=== PATIENT | female | born 1930 | race Caucasian/White ===

== ENCOUNTER 2016-09-28 17:20 | Emergency (ER) ==
--- NOTE | 2016-09-28 18:25 | PROVIDER DOCUMENTATION ---
HPI-Musculoskeletal Pain/Inj - GENERAL Chief Complaint: Extremity Injury Stated Complaint: FALL/FOOT INJURY Time Seen by Provider: 09/28/16 18:15 Source: patient, family - HX OF PRESENT ILLNESS-MUSKULOSKELTAL Nature of Presenting Problem: 86 yo female presents to ER with c/o pain to right foot and ankle after turning foot stepping off a curb getting out of her car. She has a walker and cane that she uses for assistance with ambulation but she was not using it at the time. Quality of Pain: reports: aching, throbbing Severity in ED: mild Onset/Duration: just prior to arrival Timing: still present Modifying Factors: improves with: movement (worsens), palpation (worsens) Any recent injury?: Yes Locality of Occurance: Home Similar Symptoms Previously?: No Recently seen or treated by another doctor?: No - LOWER EXTREMITY PAIN/INJURY Lower Extremities Pain: foot: right, ankle: right Context / Method of Injury: reports: twisted Associated Symptoms: reports: denies symptoms Review of Systems - Adult - REVIEW OF SYSTEMS - ADULT Constitutional: reports: no symptoms reported Eyes: reports: no symptoms reported Ears, Nose, Mouth & Throat: reports: no symptoms reported Cardiovascular: reports: no symptoms reported Respiratory: reports: no symptoms reported Gastrointestinal: reports: no symptoms reported Genitourinary: reports: no symptoms reported Musculoskeletal: reports: see HPI, joint pain Integumentary: reports: no symptoms reported Neurological: reports: no symptoms reported Psychiatric: reports: no symptoms reported Endocrine: reports: no symptoms reported Hematologic/Lymphatic: reports: no symptoms reported Allergic/Immunologic: reports: no symptoms reported All Other Systems: Reviewed and Negative Past History - Adult - PAST MEDICAL HISTORY-ADULT Review of Records: reports: Old Records Reviewed, Nursing Assessment Review, Medications Reviewed, Social history reviewed & non-contributory. Cardiovascular: reports: cardiac disease, CHF, HTN Gastrointestinal: reports: diverticulosis Genitourinary: reports: denies history Musculoskeletal: reports: arthritis Neurological: reports: denies history Psychiatric: reports: denies history Endocrine/Immune: reports: thyroid disorder Other Conditions: reports: other (Gout) - PRIOR SURGERIES/PROCEDURES Surgical/Procedure History: reports: cholecystectomy, hysterectomy, joint replacement (total knee replacement) - IMMUNIZATION STATUS Childhood Immunizations: See Nurse Assessment Flu Vaccine: See Nurse Assessment - SOCIAL HISTORY Smoking: quit greater than 1 year Substance Use: denies Alcohol Use Frequency: never Living Situation: family 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 Physical Exam-Injury Related - Physical Exam-Injury Related Initial Vital Signs Reviewed: Yes General Appearance: appears well, alert, no apparent distress Eyes: PERRL/EOMI Head, Ears, Nose, Mouth & Throat: normocephalic/atraumatic Respiratory: no respiratory distress Cardiovascular: normal peripheral pulses Peripheral Pulses: dorsalis-pedis (R): 2+ Extremity: swelling (to right ankle but family states that this is normal for patient), tenderness (TTP proximal to toes; TTP medial and lateral ankle) Integumentary: normal color, warm/dry Neurologic: grossly normal Psych/Mental Status: normal mood/affect, normal thought content, normal thought process, oriented x 3 - Glascow Coma Score Best Eye Response (Wishek): (4) open spontaneously Best Verbal Response (Adwoa): (5) oriented Best Motor Response ([place]k): (6) obeys commands Adwoa Total: 15 Progress - PLAN OF CARE/RESULTS Progress/Plan/Lab Results: 1820-Discussed x-ray results/dx/tx/discharge and f/u with PCP; patient and family verbalized understanding. Orders Category Date Time Status Javier Wrap Application DIRECTED Care 09/28/16 18:24 Active Post-Op Shoe DIRECTED Care 09/28/16 18:24 Active FOOT COMPLETE RIGHT [RAD] Stat Exams 09/28/16 17:30 Taken Vital Signs - 24 hr 09/28/16 09/28/16 17:25 17:44 Temperature 98 F 97 F L Pulse Rate 85 74 Respiratory 18 20 Rate Blood Pressure 174/87 162/73 O2 Sat by Pulse 98 100 Oximetry - XRAY 1 XRAY: Right XRAY Study: Ankle, Foot Impression: Normal (no acute fx) XRAY Interpretation: Interpreted by Dr. Arias Departure - Departure Time of Disposition Order: 18:23 DIAGNOSIS: Sprain of foot, right Qualifiers: Encounter type: initial encounter Qualified Code(s): S93.601A - Unspecified sprain of right foot, initial encounter Right foot injury Qualifiers: Encounter type: initial encounter Qualified Code(s): S99.921A - Unspecified injury of right foot, initial encounter Disposition: HOME 01 Certified Medical Emergency: Emergent Condition: Good Additional Instructions: Follow up with primary care doctor. Elevate and apply ice for 20 minutes several times a day. Wear javier wrap and post op shoe for several days; weight bear as tolerated. Use walker for assistance with ambulation. ED Follow Up Instructions: You have been treated by a care provider in the Emergency Department. These instructions are being provided to you so you can have an understanding of how to care for yourself upon discharge. Upon discharge from the Emergency Department, you are responsible for making arrangements for follow-up care by a physician of your choice. Take all prescribed medications as directed. Return to the Emergency Department immediately for any new or worsening symptoms. You may call the Physician Referral phone number at [phone] to obtain a list of Physicians who are taking new patients. Referrals: Wilmar Dunaway, [Primary Care Provider] - Attestation - Physician/ ORIN Attestation Patient care was provided by Advanced Practice Provider:: Yes Advanced Practice Provider:: Jenny Stiles Advanced Practice Provider documentation review:: The Mid-level provider documentation, treatment plan and medical decision making was reviewed by the physician who agrees with all treatment and medical decision making by the MLP.
[2016-09-28 18:43] VITALS: BP 160/87
--- NOTE | 2016-09-29 07:57 | Diag Imaging Result Document ---
PROCEDURE NAME: FOOT COMPLETE RIGHT - 09/28/2016 RIGHT FOOT, THREE VIEWS: FINDINGS: The bones are osteopenic. There are longstanding arthritic changes with interphalangeal joint space narrowing. Arthritic changes involve the ankle, forefoot, midfoot, and distal foot. Prominent calcaneal bone spurs. Questionable nondisplaced fracture to the distal third metatarsal. No other fracture identified. IMPRESSION: 1. Prominent longstanding arthritic changes. 2. The bones are osteopenic. 3. Questionable nondisplaced fracture to the distal third metatarsal.
== END 2016-09-28 18:46 | disposition home or self-care (01) ==
LOC: P.ED 17:20
DX: S93.601A Unspecified sprain of right foot, initial encounter (principal); S99.921A Unspecified injury of right foot, initial encounter; M25.571 Pain in right ankle and joints of right foot; X58.XXXA Exposure to other specified factors, initial encounter; I50.9 Heart failure, unspecified; I10 Essential (primary) hypertension; M19.90 Unspecified osteoarthritis, unspecified site; E07.9 Disorder of thyroid, unspecified; Z79.899 Other long term (current) drug therapy; M10.9 Gout, unspecified; Z96.659 Presence of unspecified artificial knee joint; Z87.891 Personal history of nicotine dependence; Z79.02 Long term (current) use of antithrombotics/antiplatelets
CPT/HCPCS: 99283

== ENCOUNTER 2016-11-02 11:24 | Inpatient (IN) ==
--- NOTE | 2016-11-02 12:59 | Diag Imaging Result Document ---
PROCEDURE NAME: PELVIS - 11/02/2016 AP PELVIS AND RIGHT HIP, 2 VIEWS: FINDINGS: There are degenerative changes in the symphysis pubis. There is some narrowing of the hip joint spaces and osteophyte formation particularly on the right side. There is a an apparent impacted fracture of the right femoral neck. This was not apparently present on 11/01/2016. IMPRESSION: Impacted fracture of the right femoral neck.
[2016-11-02 14:11] LABS: URINE MICRO REVIEW NEEDED? NO; URINE SOURCE CLEAN CATCH
[2016-11-02 14:16] LABS: BILIRUBIN URINE NEGATIVE (NEGATIVE); BLOOD URINE NEGATIVE (NEGATIVE); COLOR YELLOW; GLUCOSE URINE NEGATIVE (NEGATIVE); LEUKOCYTES URINE NEGATIVE (NEGATIVE); NITRITE URINE NEGATIVE (NEGATIVE); PROTEIN URINE NEGATIVE (NEGATIVE); TURBIDITY URINE CLEAR (CLEAR); UROBILINOGEN URINE NORMAL (NORMAL)
[2016-11-02 14:17] LABS: UR EPITHELIAL CELLS <10 /HPF (<10); URINE BACTERIA 3+ /HPF; URINE CULTURE NEEDED? YES; URINE RBC <10 /HPF (<10); URINE WBC <10 /HPF (<10)
--- NOTE | 2016-11-02 14:39 | Diag Imaging Result Document ---
PROCEDURE NAME: CHEST-PORTABLE - 11/02/2016 PORTABLE CHEST X-RAY: COMPARISON: 01/23/2016. FINDINGS: There is mild cardiomegaly and pulmonary vascular congestion. Lung volumes are somewhat low. No obvious infiltrates. No pneumothorax or large effusion. Questionable lucency through a posterior left rib. IMPRESSION: Cardiomegaly and pulmonary vascular congestion.
--- NOTE | 2016-11-02 14:42 | Diag Imaging Result Document ---
PROCEDURE NAME: PELVIS W/O CONTRAST - 11/02/2016 CT OF THE BONY PELVIS: FINDINGS: There is bilateral spondylolysis at L5. There are degenerative disk changes at L4-5 and L5-S1 as well as vacuum joint phenomenon in the left facet at L4-5. There is a minimally displaced fracture of the right femoral neck. There is degenerative change in the symphysis pubis with some calcium pyrophosphate deposition. IMPRESSION: Minimally displaced right femoral neck fracture. Other chronic degenerative changes as described above.
[2016-11-02 15:14] LABS: MANUAL DIFF NEEDED? NO
[2016-11-02 15:19] LABS: BASO% 0.2 % (0.0-0.8); EOS# 0.16 X1000 (0.0-0.7); EOS% 3.4 % (0.0-10.0); HEMATOCRIT 34.4 % (37.0-47.0); HEMOGLOBIN 10.9 g/dL (12.0-16.0); LYMPH# 0.79 X1000 (1.2-3.4); LYMPH% 16.8 % (20.5-51.1); MCH 31.2 PG (27-31); MCHC 31.7 g/dL (33-37); MCV 98.6 FL (81-99); MONO# 0.69 X1000 (0.11-0.59); MONO% 14.7 % (1.7-9.3); MPV 8.6 FL (7.4-10.4); NEUT% 64.9 % (42.2-75.2); PLT 122 X1000 (130-400); RBC 3.49 XMIL (4.2-5.4)
[2016-11-02 16:00] LABS: ALBUMIN 3.7 g/dL (3.5-5.0); CALCIUM 9.1 mg/dL (8.8-10.2); POTASSIUM 4.4 mmol/L (3.5-5.1); TOTAL BILIRUBIN 0.57 mg/dL (0.20-1.00); TOTAL PROTEIN 6.9 g/dL (6.3-8.3)
--- NOTE | 2016-11-02 16:43 | PROVIDER DOCUMENTATION ---
This chart was entered by Jeannette Plascencia Scribe, acting as scribe for Ana María Davies MD. HPI-Musculoskeletal Pain/Inj - GENERAL Chief Complaint: Hip Pain Stated Complaint: TROUBLE AMBULATING RIGHT KNEE Time Seen by Provider: 11/02/16 11:51 Source: patient, family (DAUGHTERS) - HX OF PRESENT ILLNESS-MUSKULOSKELTAL Nature of Presenting Problem: 86 y/o F presents to ED cc of R leg pain. Pt daughters states pt was seen at [facility] yesterday for same complaint. With R knee pain pt is unable to walk and "lift her leg". Daughters states they are unable to help pt. Daughters called PCP and PCP suggested they come to [place] ED for evaluation. Pt has history of knee replacement in R knee. Daughters also states pt had a fall x 1 month ago . Pt normally walks with a cane/walker. Quality of Pain: reports: aching Severity in ED: mild Onset/Duration: gradual Timing: still present Modifying Factors: improves with: rest Any recent injury?: Yes (fall x 1 month ago ) Similar Symptoms Previously?: Yes Recently seen or treated by another doctor?: Yes - LOWER EXTREMITY PAIN/INJURY Lower Extremities Pain: knee: right Context / Method of Injury: reports: fell Associated Symptoms: denies: loss of bowel control, muscle spasms, tingling in legs/feet, weakness in legs/feet Review of Systems - Adult - REVIEW OF SYSTEMS - ADULT Constitutional: denies: chills, fever Ears, Nose, Mouth & Throat: denies: ear pain, throat pain Cardiovascular: denies: chest pain, palpitations Respiratory: denies: cough, shortness of breath Gastrointestinal: denies: abdominal pain, nausea, vomiting Musculoskeletal: reports: other (R KNEE PAIN). denies: back pain Neurological: denies: dizziness/vertigo, headache/migraines Past History - Adult - PAST MEDICAL HISTORY-ADULT Review of Records: reports: Old Records Reviewed, Nursing Assessment Review Cardiovascular: reports: cardiac disease, CHF, HTN Respiratory: reports: denies history Gastrointestinal: reports: diverticulosis, GERD Obstetrical/Gynecological: reports: denies history Genitourinary: reports: denies history Musculoskeletal: reports: arthritis Neurological: reports: denies history Psychiatric: reports: denies history Endocrine/Immune: reports: thyroid disorder Other Conditions: reports: other (Gout) - PRIOR SURGERIES/PROCEDURES Surgical/Procedure History: reports: cholecystectomy, hysterectomy, joint replacement (total knee replacement) - IMMUNIZATION STATUS Childhood Immunizations: See Nurse Assessment Flu Vaccine: See Nurse Assessment - FAMILY HISTORY Family History: reviewed, not pertinent - SOCIAL HISTORY Smoking: quit greater than 1 year Provider spent 3-5 mins advising pt. on dangers of tobacco.: Discussed manners to quit use, and f/u contacts for add'l counseling. Substance Use: denies Living Situation: family Physical Exam-Injury Related - Physical Exam-Injury Related Initial Vital Signs Reviewed: Yes General Appearance: appears well, alert, no apparent distress, obese Eyes: PERRL/EOMI, pink conjunctivae Head, Ears, Nose, Mouth & Throat: normocephalic/atraumatic, moist mucous membranes, normal ENT inspection Neck: non-tender, full range of motion, supple Respiratory: chest non-tender, lungs clear, normal breath sounds Cardiovascular: normal peripheral pulses, regular rate, rhythm, no edema Abdominal Exam: normal bowel sounds, non tender, soft Back Exam: normal inspection, no CVA tenderness, no vertebral tenderness Extremity: normal range of motion, swelling (mild R knee), tenderness (to R knee ). negative: normal gait Integumentary: normal color, warm/dry, blanching Neurologic: grossly normal, no motor/sensory deficits Psych/Mental Status: oriented x 3 - Glascow Coma Score Best Eye Response (Adwoa): (4) open spontaneously Best Verbal Response (Felton): (5) oriented Best Motor Response (Felton): (6) obeys commands [place]ton Total: 15 Progress - PLAN OF CARE/RESULTS Progress/Plan/Lab Results: Vital Signs - 8 hr 11/02/16 11:50 Temperature 97.5 F L Pulse Rate 80 Respiratory Rate 18 Blood Pressure 114/55 O2 Sat by Pulse Oximetry 100 Laboratory Results - last 24 hr 11/02/16 11/02/16 11/02/16 12:42 15:09 15:09 WBC 4.69 L RBC 3.49 L Hgb 10.9 L Hct 34.4 L MCV 98.6 MCH 31.2 H MCHC 31.7 L RDW Std Deviation 15.3 H Plt Count 122 L MPV 8.6 Immature Gran % (Auto) 0.0 Neut % (Auto) 64.9 Lymph % (Auto) 16.8 L [place] % (Auto) 14.7 H Eos % (Auto) 3.4 Baso % (Auto) 0.2 Immature Gran # (Auto) 0.00 Neut # (Auto) 3.04 Lymph # (Auto) 0.79 L [place] # (Auto) 0.69 H Eos # (Auto) 0.16 Baso # (Auto) 0.01 Sodium 137 Potassium 4.4 Chloride 101 Carbon Dioxide 24 L Anion Gap 12 BUN 63 H Creatinine 1.5 H Estimated GFR/1.73 m2 33 BUN/Creatinine Ratio 42 Glucose 88 Calculated Osmolality 291 Calcium 9.1 Total Bilirubin 0.57 AST 17 ALT 15 Alkaline Phosphatase 49 Total Protein 6.9 Albumin 3.7 Globulin 3.2 Albumin/Globulin Ratio 1.2 Urine Source CLEAN CATCH Urine Color YELLOW Urine Turbidity CLEAR Urine pH 5.0 Ur Specific [place] 1.010 Urine Protein NEGATIVE Ur Glucose (Stick) NEGATIVE Ur Ketones (Stick) NEGATIVE Urine Blood NEGATIVE Urine Nitrite NEGATIVE Urine Bilirubin NEGATIVE Urobilinogen Dipstick NORMAL Urine Leukocytes NEGATIVE Urine WBC (Auto) <10 Urine RBC (Auto) <10 U Epithel Cells (Auto) <10 Urine Bacteria (Auto) 3+ Orders Category Date Time Status Varghese Cath Insertion ORDERED Care 11/02/16 13:50 Active CHEST-PORTABLE [RAD] Stat Exams 11/02/16 13:51 Draft PELVIS W/O CONTRAST [CT] Stat Exams 11/02/16 13:48 Completed PELVIS [RAD] Stat Exams 11/02/16 12:20 Completed CBC WITH ELECTRONIC DIFF [HEME] Stat Lab 11/02/16 15:09 Completed CMP [COMPREHENSIVE METABOLIC PANEL] [CHEM] Stat Lab 11/02/16 15:09 Completed URINALYSIS W/POSS RFLX CULT [URINALYSIS] Stat Lab 11/02/16 12:42 Completed URINE CULTURE [RM] Routine Lab 11/02/16 14:19 Received PLAN: REVIEW XRAYS FROM YESTERDAY , LABS , URINE , MONITOR PT Result Diagrams: 11/02/16 15:09 11/02/16 15:09 - REASSESSMENT Reassessment #1 Time Reassessed: 13:48 Status: unchanged (PT AND PT FAMILY NOTIFIED OF HIP FX AND THAT A CT AND MORE LAB WORK WILL BE DONE . PT IS UNDERSTANDING PLAN OF CARE) - XRAY 1 XRAY: Bilateral XRAY Study: Pelvis Impression: Abnormal (IMPACTED FX OF THE R FEMORAL NECK) 2 XRAY: Bilateral XRAY Study: Chest Impression: Normal (cardiomegaly adn pulmonary vascular congestion) - CT/MRI 1 CT Study: Pelvis Impression: Abnormal (minimally displaced R femoral neck fx.) CT Results: see impression - CONSULTS/PCP/HOSPITALIST Notification #1 *Consult/PCP/Hospitalist*: ( Orth) Time Discussed: 15:10 Consult Disposition: other (will consult) #2 Consult: (hospitalist) Time Discussed: 16:40 Consult Disposition: Admit Departure - Departure Time of Disposition Decision: 15:09 DIAGNOSIS: Femoral neck fracture Qualifiers: Encounter type: initial encounter Fracture type: closed Laterality: right Qualified Code(s): S72.001A - Fracture of unspecified part of neck of right femur, initial encounter for closed fracture Disposition: ADMITTED INPATIENT 09 Certified Medical Emergency: Emergent Condition: Stable Referrals and Follow-Ups: Wilmar Dunaway, DO [Primary Care Provider] - This chart was documented by the indicated scribe, (Jeannette Plascencia Scribe) and accurately reflects the services I performed and decisions made by me, Ana María Davies MD, as attested by the provider's signature.
[2016-11-02] MEDS ORDERED: NS 1,000 ML IV ONE (16:45)
[2016-11-02] MEDS ORDERED: PERCOCET-5 PO PRN (16:50)
[2016-11-02] MEDS ORDERED: DILAUDID IV PRN (16:51)
[2016-11-02 17:23] LABS: UR CREAT RANDOM 33.5 mg/dL (11-20); UR PROT RANDOM 10.6 mg/dL
--- NOTE | 2016-11-02 17:57 | CONSULTATION ---
DATE OF CONSULTATION: 11/02/2016 REASON FOR CONSULTATION: A right hip fracture. HISTORY OF PRESENT ILLNESS: Ms. Brito is an 86-year-old white female with a history of hypothyroidism, hypertension, atrial fibrillation, gout, osteopenia and congestive heart failure who presented to the emergency room today after falling against her car and having pain in her right hip. She came to the emergency room where images were taken. A CT of the pelvis was obtained and it showed a right impacted femoral neck fracture. We were asked to further evaluate the patient. PAST MEDICAL HISTORY: Is listed in the history of present illness. PAST SURGICAL HISTORY: Hysterectomy, cholecystectomy and bilateral knee replacements. ALLERGIES: To sulfa drugs. FAMILY HISTORY: Of cancer in first-degree relatives. SOCIAL HISTORY: She denies tobacco or alcohol abuse. CURRENT HOME MEDICATIONS: Synthroid 50 mcg p.o. daily. Uloric 40 mg p.o. daily. Pradaxa 150 mg p.o. daily. Lasix 40 mg p.o. b.i.d. Metoprolol 50 mg p.o. daily. Digoxin 125 mcg p.o. at bedtime. Colace 100 mg p.o. daily. Mirapex 0.25 mg p.o. at bedtime. Tylenol with codeine #3 one p.o. q.4 hours p.r.n. for pain. REVIEW OF SYSTEMS: Ten point review of systems performed and the patient answered negative to all except for what was listed above in the history of present illness. PHYSICAL EXAMINATION: General: The patient is lying in bed, surrounded by family members. She is awake and oriented and able to answer questions appropriately. Musculoskeletal Examination: Physical examination of the right hip reveals pain with palpation in any movement of the right lower extremity. She is neuro intact. She has brisk capillary refill and 2+ pedal pulses. I did not note any ecchymosis or erythema. ASSESSMENT: Right impacted femoral neck fracture. PLAN: Discussed with the patient the nature of the fracture and talked with her about surgically repairing the hip. I discussed with her that we would perform a closed reduction and percutaneous pinning of the right hip and she agreed to proceed with the procedure. We will plan to do that tomorrow afternoon if possible if that time works out with the surgery team. The risks, benefits, and alternatives of the surgery were discussed with the patient including risk of anesthesia, bleeding, damage to blood vessels, nerves, tendons, ligaments, and other imponderables were discussed. The patient agrees to proceed with the surgery at this time. Dictated by MOOK Mcpherson for Sher Brock MD cc: MOOK Mcpherson MD
[2016-11-02] MEDS ORDERED: TYLENOL WITH CODEINE #3 PO PRN (18:29)
[2016-11-02] MEDS ORDERED: TESSALON PO PRN (18:31)
--- NOTE | 2016-11-02 19:20 | HISTORY AND PHYSICAL ---
PRIMARY CARE PHYSICIAN: Dr. Dunaway. CHIEF COMPLAINT: "I can't stand on my right leg." HISTORY OF PRESENT ILLNESS: Ms. Brito is an 86-year-old female with a history of atrial fibrillation, hypertension, chronic kidney disease and gout who presented to the ER today with a chief complaint of inability to bear weight on her right leg. The patient states that about 3 weeks ago when she was trying to step up on a curb she almost fell against the car and was able to right herself before falling to the ground. The patient states that she believes she twisted her leg and hip in an unusual position. The patient states that over the last 3 weeks the pain has been increasing in intensity. The patient states she has gotten to the point where she cannot bear weight on her right leg. Yesterday the patient went to [facility] at which time a right knee x-ray was done that was noted to be unremarkable and the patient was sent home. Today patient returned to [facility] for another assessment because the pain was worse. The patient had a hip and pelvis x-ray done today that revealed an impacted fracture of the right femoral neck as well as a pelvic CT that confirmed the fracture. The patient denies any chest pain, shortness of breath, headache, dizziness or recent syncopal episodes. The patient reports that she is on Pradaxa. PAST MEDICAL HISTORY: 1. Hypothyroidism. 2. Hypertension. 3. Atrial fibrillation. 4. Gout. 5. Osteopenia. 6. Congestive heart failure. 7. Chronic kidney disease. 8. Restless legs syndrome. PAST SURGICAL HISTORY: 1. Hysterectomy. 2. Bilateral knee replacement. 3. Cholecystectomy. FAMILY HISTORY: Positive for colon cancer and breast cancer in 1st degree relatives. ALLERGIES: Sulfa drugs. HOME MEDICATIONS: 1. Mirapex 0.25 mg p.o. at bedtime. 2. Lopressor 50 mg p.o. daily. 3. Synthroid 50 mcg p.o. daily. 4. Lasix 40 mg p.o. twice a day. 5. Uloric 40 mg p.o. daily. 6. Colace 100 mg p.o. daily. 7. Digoxin 125 mcg oral daily. 8. Pradaxa 150 p.o. daily number. 9. Tylenol #3 1 tab oral every 4 hours p.r.n. for pain. REVIEW OF SYSTEMS: All other review of systems are negative. Please refer to the history of present illness for pertinent positives and negatives. PHYSICAL EXAMINATION: VITAL SIGNS: Temperature 97.5 degrees, blood pressure 114/55, heart rate 80, respirations 18, O2 saturations 100% on room air. GENERAL: This is an elderly female, lying on the stretcher in no acute distress. SKIN: No rashes. No lesions. Normal capillary refill. HEAD: Normocephalic, atraumatic. NECK: Supple. No JVD. No lymphadenopathy. No carotid bruits. LUNGS: Clear to auscultation bilaterally. No wheezes, no rales. No rhonchi. ABDOMEN: Positive bowel sounds. Soft, nontender, nondistended. EXTREMITIES: No edema. No cyanosis. No calf tenderness. NEUROLOGIC: The patient is alert and oriented x3. No focal neurologic deficits noted. LABS: White blood cell count 4.6, hemoglobin 10, hematocrit 34, platelets 122,000. Sodium 137, potassium 4.4, chloride 101, CO2 24, BUN 63, creatinine 1.5 ,glucose 88, calcium 9.1. Total bilirubin 0.5, AST 17, ALT 15, alkaline phosphatase 49, total protein 6.9, albumin 3.7. UA negative. Pelvic CT reveals a minimally displaced right femoral neck fracture. The chest x-ray shows cardiomegaly and pulmonary vascular congestion. ASSESSMENT AND PLAN: 1. Right femoral neck fracture. The patient has been seen by the Orthopedic Service and will be taken to the OR for fracture repair tomorrow. The patient will be made NPO after midnight and started on p.r.n. pain medication. 2. Hypertension. Controlled. 3. Paroxysmal atrial fibrillation. The patient appears to be rate controlled. We will order an EKG. The patient's Pradaxa is on hold in anticipation of surgery tomorrow. Will continue on the digoxin and Lopressor. 4. Restless legs syndrome. Continue on Mirapex. 5. Hypothyroidism. Continue on Synthroid. 6. History of CHF. The patient's chest x-ray does show some mild pulmonary congestion. Will continue on the patient's home dosage of Lasix. 7. Deep vein thrombosis prophylaxis. Will start the patient on SCDs. 8. The plan of care was discussed with the patient and her family at the bedside. cc: Yris Blank MD
[2016-11-02] MEDS: MIRAPEX PO SCH (20:32)
[2016-11-02] MEDS: SODIUM CHLORIDE 0.9% INJ SCH (20:33)
[2016-11-02] MEDS: PROTONIX IV SCH (20:33)
[2016-11-02] MEDS ORDERED: LASIX PO SCH (21:00)
[2016-11-03] MEDS: SODIUM CHLORIDE 0.9% INJ SCH ×2 (06:03→18:42)
[2016-11-03] MEDS: PROTONIX IV SCH ×2 (06:03→18:42)
[2016-11-03 06:05] LABS: MANUAL DIFF NEEDED? NO
[2016-11-03 06:08] LABS: BASO% 0.2 % (0.0-0.8); EOS% 3.8 % (0.0-10.0); HEMATOCRIT 35.4 % (37.0-47.0); HEMOGLOBIN 11.2 g/dL (12.0-16.0); LYMPH# 0.81 X1000 (1.2-3.4); LYMPH% 15.5 % (20.5-51.1); MCH 31.2 PG (27-31); MCHC 31.6 g/dL (33-37); MCV 98.6 FL (81-99); MONO# 0.67 X1000 (0.11-0.59); MONO% 12.9 % (1.7-9.3); MPV 9.2 FL (7.4-10.4); NEUT% 67.6 % (42.2-75.2); PLT 137 X1000 (130-400); RBC 3.59 XMIL (4.2-5.4); RETIC% 1.97 % (0.8-2.1); RETIC-HE 32.2 PG (28.2-36.6)
[2016-11-03 06:20] LABS: IRON SATURATION 9 %; TIBC 257 ug/dL; TOTAL IRON 22 ug/dL (49-151); UNBOUND IRON 235 ug/dL (112-346)
[2016-11-03 06:39] LABS: FREE T4 1.58 ng/dL (0.93-1.70)
[2016-11-03] MEDS: SYNTHROID PO SCH (08:01)
[2016-11-03] MEDS: LOPRESSOR PO SCH (08:01)
[2016-11-03] MEDS ORDERED: COLACE PO SCH (09:00)
[2016-11-03 11:19] LABS: ALBUMIN 3.5 g/dL (3.5-5.0); CALCIUM 9.4 mg/dL (8.8-10.2); POTASSIUM 4.5 mmol/L (3.5-5.1)
--- NOTE | 2016-11-03 13:35 | PROGRESS NOTE ---
DATE: 11/03/2016 SUBJECTIVE: The patient is resting comfortably. She is waiting to undergo hip surgery. She has no complaints. OBJECTIVE: Vital Signs: Temperature 98 degrees, blood pressure 128/48, heart rate 92, respirations 16, O2 saturation 91% on room air. General: This is an elderly female, lying comfortably in bed in no acute distress. HEENT: Head normocephalic, atraumatic. Heart: S1 and S2 normal. Regular rate and rhythm. Lungs: Clear to auscultation bilaterally. No wheezing. No rales. No rhonchi. Abdomen: Positive bowel sounds. Soft, nontender, nondistended. Extremities: No edema. No cyanosis. No calf tenderness. Neurologic: The patient is alert and oriented x3. LABORATORIES: White blood cell count 5.2, hemoglobin 11, hematocrit 35, platelets 137,000. Sodium 141, potassium 4.5, chloride 101, CO2 of 22, BUN 64, creatinine 1.7, glucose 82, phosphorus 5.8. TSH 3.6 and free T4 of 1.5. ASSESSMENT AND PLAN: 1. Right femur fracture. The patient is scheduled to go to the operating room today. 2. Acute kidney injury on chronic kidney disease, stage 3. The patient is on Lasix. We will discontinue this and start the patient on gentle IV fluid hydration. We will monitor the urine output closely. 3. Paroxysmal atrial fibrillation. The patient is currently rate controlled. 4. Hypothyroidism. Continue on Synthroid. 5. Vitamin D deficiency. Will start the patient on vitamin D replacement. 6. Restless legs syndrome. Continue on Mirapex. cc: Yris Blank MD
[2016-11-03] MEDS ORDERED: KEFZOL 1 GM/D5W 1 GM/50 ML IVPB ONE (15:03)
[2016-11-03] MEDS ORDERED: CLAVE SECONDARY SET 11953 ONE (15:03)
[2016-11-03] MEDS: DILAUDID ONE ×2 (16:10→16:20)
--- NOTE | 2016-11-03 16:31 | OPERATIVE NOTE ---
PROCEDURE DATE: 11/03/2016 PREOPERATIVE DIAGNOSIS: Right nondisplaced femoral neck fracture. POSTOPERATIVE DIAGNOSIS: Right nondisplaced femoral neck fracture. PROCEDURE: Was a closed reduction and percutaneous pinning of right femoral neck fracture with three 7.5 cancellous cannulated screws. ANESTHESIA: General. SURGEON: Dr. Sher Brock. COMPLICATIONS: None. BLOOD LOSS: Minimal. DESCRIPTION OF PROCEDURE: The patient brought to the operative suite and placed in supine position. After satisfactory administration of general anesthesia, patient placed on the fracture table in the usual position for right hip. The right hip was then prepped and draped in usual sterile fashion. A longitudinal incision was made over the flare of the greater trochanter. Dissected sharply through the skin. Then three 7.3 guide pins were placed in an inverted triangle shaped pattern. Once these were verified to be in good position, proper length screws were measured. The outer cortex was reamed and then the screws were driven into place. The superior- posterior screw was found to not have any purchase laterally therefore washer was placed on the screw and reinserted and at that time was obtaining good purchase. The guide pins were removed. The AP and lateral images showed it to be in excellent position. The wound was copiously irrigated. Skin edge approximated with 2-0 Vicryl. Skin was closed with skin malcolm. A sterile dressing was applied. The patient tolerated the procedure well without complication. At the end the procedure, all counts correct x2. The patient was transferred to the recovery room in stable condition. cc: Sher Brock MD
[2016-11-03] MEDS ORDERED: XYLOCAINE-MPF 2% ONE (16:35)
[2016-11-03] MEDS ORDERED: EXTENSION SET 32 IN 4522 ONE (16:35)
[2016-11-03] MEDS ORDERED: LR 1,000 ML ONE (16:35)
[2016-11-03] MEDS ORDERED: ANESTHESIA PB SET 88 IN 5742 ONE (16:35)
[2016-11-03] MEDS ORDERED: DIPRIVAN 1% ONE (16:43)
[2016-11-03] MEDS: NS 1,000 ML IV SCH (17:14)
[2016-11-03] MEDS ORDERED: MILK OF MAGNESIA PO PRN (17:22)
[2016-11-03] MEDS ORDERED: MORPHINE IV PRN (17:22)
[2016-11-03] MEDS ORDERED: HALDOL IV PRN (17:22)
[2016-11-03] MEDS ORDERED: ZOFRAN IV PRN (17:22)
[2016-11-03] MEDS: TYLENOL PO SCH (19:43)
[2016-11-03] MEDS: MIRAPEX PO SCH (21:03)
[2016-11-03] MEDS: PERIDEX MT SCH (21:03)
[2016-11-03] MEDS: COLACE PO SCH (21:03)
[2016-11-03] MEDS: KEFZOL 1 GM/D5W 1 GM/50 ML IVPB IV SCH (23:29)
[2016-11-04] MEDS: TYLENOL PO SCH ×4 (03:23→17:47)
[2016-11-04] MEDS: XARELTO PO SCH (06:14)
[2016-11-04] MEDS: SODIUM CHLORIDE 0.9% INJ SCH (06:14)
[2016-11-04] MEDS: SYNTHROID PO SCH (06:14)
[2016-11-04] MEDS: KEFZOL 1 GM/D5W 1 GM/50 ML IVPB IV SCH (06:14)
[2016-11-04] MEDS: PROTONIX IV SCH ×3 (06:14→20:16)
[2016-11-04 06:43] LABS: MANUAL DIFF NEEDED? NO
[2016-11-04 06:49] LABS: BASO% 0.2 % (0.0-0.8); EOS# 0.11 X1000 (0.0-0.7); EOS% 2.4 % (0.0-10.0); HEMATOCRIT 32.1 % (37.0-47.0); HEMOGLOBIN 10.2 g/dL (12.0-16.0); LYMPH% 17.2 % (20.5-51.1); MCH 31.6 PG (27-31); MCHC 31.8 g/dL (33-37); MCV 99.4 FL (81-99); MONO# 0.74 X1000 (0.11-0.59); MONO% 15.9 % (1.7-9.3); MPV 9.4 FL (7.4-10.4); NEUT% 64.3 % (42.2-75.2); PLT 130 X1000 (130-400); RBC 3.23 XMIL (4.2-5.4)
[2016-11-04] MEDS: NS 1,000 ML IV SCH ×2 (06:49→14:56)
[2016-11-04] MEDS: PERIDEX MT SCH ×2 (08:38→20:20)
[2016-11-04] MEDS: LOPRESSOR PO SCH (08:38)
[2016-11-04] MEDS: FERROUS SULFATE PO SCH (08:38)
[2016-11-04] MEDS ORDERED: VITAMIN D PO SCH (09:00)
[2016-11-04 10:00] LABS: CALCIUM 8.8 mg/dL (8.8-10.2); POTASSIUM 4.4 mmol/L (3.5-5.1)
--- NOTE | 2016-11-04 14:31 | PROGRESS NOTE ---
DATE: 11/04/2016 SUBJECTIVE: The patient is postop day number 1 from a right hip in situ pinning with cannulated screws x3. This morning, she states she is doing very well. She denies having any pain currently. She states she feels better than she did prior to the surgery. She is currently denying any nausea or vomiting. No chest pain or shortness of breath. No fevers or chills. OBJECTIVE: Vital signs: Temperature is 98.1, pulse 92, respirations 18, blood pressure 117/62. On examination of her right lower extremity, her skin incision is well approximated. Her dressing is clean, dry and intact. Her compartments are soft. On gentle passive range of motion at the hip, knee and ankle, she has no pain. She is grossly neurovascularly intact distally. DIAGNOSTIC DATA: Hemoglobin is 10.2, hematocrit 32.1, white count 4.6, platelet count 130,000. Her creatinine level is 1.7, BUN of 62. ASSESSMENT: Postoperative day number 1 of in situ pinning of right nondisplaced femoral neck fracture, doing well. PLAN: Today I discussed with her, we will continue her current restrictions that Dr. Brock placed on her postoperatively. We will change her dressing in the a.m. I have encouraged incentive spirometer. We will continue to follow. Please call with any questions or concerns. cc: Ericka Mckeon, DO
--- NOTE | 2016-11-04 15:03 | PROGRESS NOTE ---
DATE: 11/04/2016 SUBJECTIVE: The patient is resting comfortably in bed. She has had a bowel movement today. She states that she feels a lot better. OBJECTIVE: Vital signs: Temperature 98, blood pressure 113/50, heart rate 73, respirations 16, O2 saturation is 97% on room air. General: This is an elderly female lying in bed in no acute distress. Head is normocephalic and atraumatic. Heart: S1, S2 normal. Regular rate and rhythm. Lungs: Clear to auscultation bilaterally. Abdomen: Positive bowel sounds. Soft, nontender and nondistended. DIAGNOSTIC DATA: White blood count is 4.6, hemoglobin 10, hematocrit 32, platelets 130. Sodium is 142, potassium 4.4, chloride 105, CO2 is 23, BUN is 62, creatinine 1.7. ASSESSMENT AND PLAN: 1. Status post closed reduction and percutaneous pinning of a right femoral neck fracture. Management as per the orthopedic surgeon. 2. Acute kidney injury on chronic kidney disease. Continue on gentle IV fluid hydration. We will avoid nephrotoxic agents. 3. Paroxysmal atrial fibrillation. The patient is currently rate controlled. 4. Hypothyroidism. Continue on Synthroid. 5. Vitamin D deficiency. Continue on vitamin D replacement. 6. Restless leg syndrome. Continue on Mirapex. 7. UTI. Rocephin has been started. The urine culture is growing gram negative rods. 8. DVT prophylaxis. The patient has been placed on Xarelto. cc: Yris Blank MD MTDD
[2016-11-04 16:19] LABS: URINE MICRO REVIEW NEEDED? NO; URINE SOURCE CATH
[2016-11-04 16:25] LABS: BILIRUBIN URINE NEGATIVE (NEGATIVE); BLOOD URINE TRACE (NEGATIVE); COLOR YELLOW; GLUCOSE URINE NEGATIVE (NEGATIVE); LEUKOCYTES URINE LARGE (NEGATIVE); NITRITE URINE NEGATIVE (NEGATIVE); PH URINE 5.5; PROTEIN URINE NEGATIVE (NEGATIVE); SP GRAVITY URINE 1.016; TURBIDITY URINE CLEAR (CLEAR); UR EPITHELIAL CELLS <10 /HPF (<10); URINE BACTERIA NEGATIVE /HPF; URINE RBC <10 /HPF (<10); URINE WBC TNTC /HPF (<10); UROBILINOGEN URINE NORMAL (NORMAL)
[2016-11-04] MEDS: ROCEPHIN 1 GM/NS 1 GM/50 ML IVPB IV SCH (17:57)
[2016-11-04] MEDS: COLACE PO SCH (20:20)
[2016-11-04] MEDS: MIRAPEX PO SCH (20:20)
[2016-11-05] MEDS: TYLENOL PO SCH ×5 (02:04→18:14)
[2016-11-05] MEDS: NS 1,000 ML IV SCH (04:25)
[2016-11-05] MEDS: PROTONIX IV SCH ×4 (05:38→18:14)
[2016-11-05] MEDS: XARELTO PO SCH (05:39)
[2016-11-05] MEDS: SYNTHROID PO SCH ×2 (05:39→06:01)
[2016-11-05] MEDS: SODIUM CHLORIDE 0.9% INJ SCH ×2 (05:39→17:13)
[2016-11-05 06:15] LABS: MANUAL DIFF NEEDED? NO
[2016-11-05 06:19] LABS: BASO% 0.2 % (0.0-0.8); EOS# 0.21 X1000 (0.0-0.7); EOS% 4.4 % (0.0-10.0); HEMATOCRIT 29.5 % (37.0-47.0); HEMOGLOBIN 9.6 g/dL (12.0-16.0); LYMPH# 0.74 X1000 (1.2-3.4); LYMPH% 15.7 % (20.5-51.1); MCH 31.6 PG (27-31); MCHC 32.5 g/dL (33-37); MONO# 0.71 X1000 (0.11-0.59); MPV 9.6 FL (7.4-10.4); NEUT% 64.7 % (42.2-75.2); PLT 134 X1000 (130-400); RBC 3.04 XMIL (4.2-5.4)
[2016-11-05] MEDS: LOPRESSOR PO SCH (08:19)
[2016-11-05] MEDS: PERIDEX MT SCH ×2 (08:19→20:02)
[2016-11-05] MEDS: FERROUS SULFATE PO SCH (08:19)
[2016-11-05 09:29] LABS: ALBUMIN 2.8 g/dL (3.5-5.0); CALCIUM 8.2 mg/dL (8.8-10.2); POTASSIUM 3.9 mmol/L (3.5-5.1)
--- NOTE | 2016-11-05 15:32 | PROGRESS NOTE ---
DATE: 11/05/2016 SUBJECTIVE: The patient is resting comfortably in bed. She has no complaints. She is having regular bowel movements. OBJECTIVE: Vital Signs: Temperature 97.6 degrees, blood pressure 134/48, heart rate 86, respirations 16, O2 saturation is 96% on room air. General: This is an elderly female, lying comfortably in bed, in no acute distress. Head: Normocephalic, atraumatic. Heart: S1, S2. Normal. Regular rate and rhythm. Lungs: Clear to auscultation bilaterally. No wheezes. No rales. No rhonchi. Abdomen: Positive bowel sounds. Soft, nontender, nondistended. Extremities: No edema. No cyanosis. No calf tenderness. Neurologic: The patient is alert and oriented x3. LABS: White blood cell count 4.7, hemoglobin 9.6, hematocrit 29, platelets 134,000. Sodium 138, potassium 3.9, chloride 102, CO2 22, BUN 57, creatinine 1.4, glucose 77, phosphorus 4.8, calcium 8.2, albumin 2.8. ASSESSMENT AND PLAN: 1. Status post closed reduction and percutaneous pinning of a right femoral neck fracture. Continue with physical therapy. Orthopedic surgery is following. 2. Stage 3 chronic kidney disease. Stable. 3. Paroxysmal atrial fibrillation. The patient is currently rate controlled. 4. Hypothyroidism. Continue on Synthroid. 5. Vitamin D deficiency. Continue on vitamin D replacement. 6. Restless legs syndrome. Continue on Mirapex. 7. Urinary tract infection secondary to Escherichia coli. Continue on Rocephin. 8. Deep vein thrombosis prophylaxis. The patient is currently on Xarelto. 9. Disposition. The patient will be discharged to rehab once a rehab bed is available. cc: Yris Blank MD
[2016-11-05] MEDS: ROCEPHIN 1 GM/NS 1 GM/50 ML IVPB IV SCH (17:13)
[2016-11-05] MEDS: OXY IR PO PRN (17:22)
[2016-11-05] MEDS: COLACE PO SCH (20:02)
[2016-11-05] MEDS: MIRAPEX PO SCH (20:02)
[2016-11-06] MEDS: TYLENOL PO SCH ×3 (03:31→17:11)
[2016-11-06] MEDS: OXY IR PO PRN (05:01)
[2016-11-06] MEDS: SYNTHROID PO SCH (06:02)
[2016-11-06] MEDS: XARELTO PO SCH (06:02)
[2016-11-06] MEDS: SODIUM CHLORIDE 0.9% INJ SCH (06:02)
[2016-11-06] MEDS: PROTONIX IV SCH (06:02)
[2016-11-06 06:13] LABS: MANUAL DIFF NEEDED? NO
[2016-11-06 06:20] LABS: BASO% 0.4 % (0.0-0.8); EOS% 6.4 % (0.0-10.0); HEMATOCRIT 31.1 % (37.0-47.0); HEMOGLOBIN 9.9 g/dL (12.0-16.0); LYMPH# 0.77 X1000 (1.2-3.4); LYMPH% 16.5 % (20.5-51.1); MCHC 31.8 g/dL (33-37); MCV 97.5 FL (81-99); MONO# 0.64 X1000 (0.11-0.59); MONO% 13.7 % (1.7-9.3); MPV 9.4 FL (7.4-10.4); PLT 155 X1000 (130-400); RBC 3.19 XMIL (4.2-5.4)
[2016-11-06 06:27] LABS: CALCIUM 8.6 mg/dL (8.8-10.2); POTASSIUM 4.4 mmol/L (3.5-5.1)
[2016-11-06] MEDS: FERROUS SULFATE PO SCH (09:45)
[2016-11-06] MEDS: LOPRESSOR PO SCH (09:45)
[2016-11-06] MEDS: PERIDEX MT SCH (09:46)
--- NOTE | 2016-11-06 15:16 | DISCHARGE SUMMARY ---
ADMISSION DATE: 11/02/2016 DISCHARGE DATE: 11/06/2016 CONSULTATIONS: Dr. Sher Brock, Orthopedics PERTINENT PROCEDURES: Right nondisplaced femoral neck fracture status post closed reduction and percutaneous pinning of the right femoral neck. DISCHARGE DIAGNOSES: 1. Status post closed reduction and percutaneous pinning of the right femoral neck. Continue with physical therapy. Patient being discharged to rehab. Follow up with orthopedics. 2. Stage 3 chronic disease stable. 3. Paroxysmal atrial fibrillation. Continue with patient's home medication along with her Pradaxa. 4. Hypothyroidism. Continue Synthroid. 5. Vitamin D deficiency. Continue to replace vitamin D. 6. Restless legs syndrome. Continue Mirapex. 7. Urinary tract infection. Continue p.o. amoxicillin. HOSPITAL COURSE: Ms. Brito is an 86-year-old, female, with history of atrial fibrillation, hypertension, chronic kidney disease and gout presented to the ED today with chief complaint of inability to bear weight on her right leg. She reported 3 weeks prior she was trying to step up on a curb and almost fell against the car and was able to right herself before falling on the ground. She believes she twisted her hip in an usual position and over the last 3 weeks her pain has been increasing in intensity and she has also gotten to the point where she can no longer bear weight on her right leg. She presented to [facility] where she had imaging done that did reveal an impacted fracture of the right femoral neck as well as a pelvic CT that confirmed the fracture. The patient was transferred to [facility]. She did undergo a closed reduction and percutaneous pinning of the right femoral neck with Dr. Brock. She worked with physical therapy. Patient also was found to have an E. coli UTI for which she will stay on amoxicillin. She was overall so throughout her stay. Her Pradaxa was held. She will now be switched back to her Pradaxa and placed back on all of her home medications as well as given p.r.n. pain medications while in rehab. Patient is appropriate for discharge to [facility] today. Temperature is 97.9 degrees, heart rate 87, respirations 18, blood pressure 118/55, O2 is 95% on room air. DISCHARGE DIET: Healthy heart. DISCHARGE MEDICATIONS: 1. Tylenol 1000 mg p.o. q.8 hours p.r.n. pain. 2. Amoxil 500 mg p.o. t.i.d. 3. Pradaxa 150 mg p.o. daily. 4. Digoxin 125 mg p.o. at bedtime. 5. Colace 100 mg p.o. daily. 6. Vitamin D 29565 units p.o. q.7 days 7. Uloric 40 mg p.o. daily. 8. Ferrous sulfate 325 mg p.o. with breakfast. 9. Lasix 40 mg p.o. b.i.d. 10. Synthroid 50 mcg p.o. daily. 11. Milk of Magnesia 30 mL p.o. daily p.r.n. for constipation. 12. Lopressor 50 mg p.o. daily. 13. Percocet 1 each p.o. q. 6 hours p.r.n. pain. 14. Potassium chloride 10 mEq p.o. b.i.d. 15. Mirapex 0.25 mg p.o. at bedtime. FOLLOWUP: The patient is being discharged to [facility] rehab. She will follow up with Dr. Brock as indicated. She will follow up with Dr. Wilamr Salomon upon discharge from rehab. Patient can return to the ED for any worsening of symptoms. DISCHARGE TIME: Thirty minutes Dictated by MOOK Santana for Baltazar Dill MD cc: MD Dr. Wilmar Gonzales MD
[2016-11-06 17:04] VITALS: BP 135/91
[2016-11-06] MEDS: ROCEPHIN 1 GM/NS 1 GM/50 ML IVPB IV SCH (17:11)
[2016-11-06] MEDS ORDERED: PROTONIX PO SCH (21:00)
== END 2016-11-06 18:27 ==
LOC: ED 11:24 → SUATTDRO 19:09 → 4N 19:09
PROVIDERS: ATTEND Internal Medicine